=== PATIENT | male | born 1965 | race Caucasian/White ===

== ENCOUNTER 2020-12-29 09:48 | Day surgery (SDC) | payer OTHER ==
[~2020-12-29] VITALS: Ht 183 cm; Wt 100.0 kg
[~2020-12-29 09:48] MED LIST: CENTRUM SILVER1 EAC5 PO; DICLOFENAC SODI75 MG PO; PRILOSEC20 MG PO; VIT D PO
--- NOTE | 2020-12-29 15:09 | NUR ---
PT HAD A LDATHR THIS DATE. PT. WILL D/C HOME WITH SPOUSE. PT. HAS A ROLLING WALKER. PT REQUESTED [facility]. FIRST APPT. IS 12/31/20 @ 3:34 P.M. PT SIGNED CHOICE FORM.
--- NOTE | 2020-12-29 22:28 | NUR ---
PATIENT CALLED NURSE TO COME IN ROOM FOR CHEST FLUTTERS. HEART RATE WAS 130 ON ASSESSMENT. PATIENT DENIES CHEST PAIN, JUST FLUTTERING. EKG SHOWS SINUS TACH. KATIA SHEPPARD AT BEDSIDE TO SEE EKG. PATIENT PLACED ON TELE. LABS ORDERED. MONITORING. NO NEW ORDERS AT THIS TIME.
[2020-12-29 23:27] LABS: HCT 43.5 % (42.0-52.0); HGB 14.8 g/dl (13.2-18.0); MCH 30.6 pg (25.0-31.0); MCV 89.9 fL (78.0-100.0); MPV 11.5 fL (6.0-9.5); RBC 4.84 M/uL (4.70-6.00); RDW 13.5 % (11.5-14.0); WBC 22.8 K/uL (4.0-10.5)
[2020-12-29 23:45] LABS: ALBUMIN 4.2 g/dL (3.4-5.0); BILIRUBIN - TOTAL 0.7 mg/dL (0.2-1.0); BUN/CREAT RATIO (CALC) 30.1 RATIO; CREATININE 0.73 mg/dL (0.67-1.17); GLOBULIN (CALCULATION) 3.5 g/dL; TOTAL PROTEIN 7.7 g/dL (6.4-8.2)
[2020-12-30 07:03] LABS: BASOPHIL 0.2 % (0-2); EOSINOPHIL 0.2 % (0-5); HCT 35.2 % (42.0-52.0); HGB 12.1 g/dl (13.2-18.0); LYMPHOCYTE 13.8 % (15-48); MCH 30.6 pg (25.0-31.0); MCHC 34.4 g/dL (32.0-36.0); MCV 89.1 fL (78.0-100.0); MONOCYTE 10.7 % (0-12); MPV 11.2 fL (6.0-9.5); NEUTROPHIL 74.5 % (41-80); NRBC 0; PLT 276 K/uL (150-400); RBC 3.95 M/uL (4.70-6.00); RDW 13.6 % (11.5-14.0); WBC 16.6 K/uL (4.0-10.5)
[2020-12-30 07:26] LABS: BUN/CREAT RATIO (CALC) 22.2 RATIO; CREATININE 0.81 mg/dL (0.67-1.17); POTASSIUM 4.1 mmol/L (3.5-5.1)
[2020-12-30] MEDS ORDERED: FEOSOL325 MG PO (09:30)
[2020-12-30] MEDS ORDERED: OXYCODONE-ACET1 EAC1 PO (09:30)
[2020-12-30] MEDS ORDERED: XARELTO10 MG PO (09:30)
[2020-12-30] MEDS ORDERED: TOPROL XL 25MG25 MG PO (10:07)
[2020-12-30] MEDS ORDERED: ROBAXIN500 MG PO (10:24)
--- NOTE | 2020-12-30 14:00 | NUR ---
1400 COMPLAINTS OF INCREASED NAUSEA AND DIZZINESS, VOMITING, FEELS THAT HE CAN'T GO HOME FEELING THIS WAY. DANYELL HARIKA WAS NOTIFED AND NEW ORDERS TO REPLACE THE IV SITE AND RESTART THE FLUIDS AND GIVE AN EXTRA DOSE OF ZOFRAN. WILL MONITOR FOR CDISCHARGE HAS BEEN CANCELLED.
--- NOTE | 2020-12-30 18:04 | NUR ---
1751 INCREASED HEARTRATE IN THE 160 WHILE UP WALKING TO THE BATHROOM, STILL INCREASED TO THE 155 WHILE SITTING UP IN THE CHAIR, COLOR PALE NO COMPLIANTS OF ANY CHEST PAINS JUST STILL THE NAUSEA. DR. CHIU WAS NOTIFED AND NEW ORDERS FOR A STAT EKG, LAB WORK, V/S ARE 123/90, HR 136, RES 22, O2 SAT 99% ON ROOM AIR. NEW ORDERS FOR COMPAZINE IV TO BE GIVEN, WILL NOTIFY DR. CHIU OF THE RESULTS OF THE LAB WORK AND THE EKG. EKG ONLY SHOWED SINUS TACK HR 133, WILL MONITOR FOR CHANGES.
[2020-12-30 18:25] LABS: BASOPHIL 0.2 % (0-2); EOSINOPHIL 0 % (0-5); HGB 10.5 g/dl (13.2-18.0); LYMPHOCYTE 10.6 % (15-48); MCH 30.9 pg (25.0-31.0); MCV 88.2 fL (78.0-100.0); MONOCYTE 9.3 % (0-12); MPV 11.2 fL (6.0-9.5); NEUTROPHIL 79.3 % (41-80); NRBC 0; PLT 307 K/uL (150-400); RDW 13.6 % (11.5-14.0)
[2020-12-30 18:26] LABS: WBC 18.7 K/uL (4.0-10.5)
[2020-12-30 18:46] LABS: BUN/CREAT RATIO (CALC) 21.4 RATIO; CREATININE 1.17 mg/dL (0.67-1.17); MAGNESIUM 1.8 mg/dL (1.8-2.4)
--- NOTE | 2020-12-30 18:55 | NUR ---
REPORTS THE LAB RESULTS TO SILVER TAVERAS APRN, NO NEW ORDERS AT THIS TIME.
[2020-12-31 06:30] LABS: BASOPHIL 0.2 % (0-2); EOSINOPHIL 0.3 % (0-5); HCT 24.8 % (42.0-52.0); HGB 8.5 g/dl (13.2-18.0); LYMPHOCYTE 10.3 % (15-48); MCH 30.6 pg (25.0-31.0); MCHC 34.3 g/dL (32.0-36.0); MCV 89.2 fL (78.0-100.0); MONOCYTE 11.7 % (0-12); MPV 11.7 fL (6.0-9.5); NEUTROPHIL 76.9 % (41-80); NRBC 0; PLT 208 K/uL (150-400); RBC 2.78 M/uL (4.70-6.00); RDW 13.7 % (11.5-14.0); WBC 13.7 K/uL (4.0-10.5)
[2020-12-31 06:55] LABS: BUN/CREAT RATIO (CALC) 23.7 RATIO; CREATININE 1.14 mg/dL (0.67-1.17)
[2020-12-31 08:11] LABS: HBSAG SCREEN Negative (Negative); HEP B CORE AB, TOT Negative (Negative); HEP C VIRUS AB 0.1 (0.0-0.9)
[2020-12-31] MEDS ORDERED: ZOFRAN4 M1 PO (08:31)
--- NOTE | 2020-12-31 09:54 | NUR ---
PT IS TO D/C HOME THIS DATE AFTER A DELAY. HE HAS AN APPT AT [facility] AT 9:00 A.M. ON 01/02/21.
[2020-12-31] MEDS ORDERED: NORCO 5-325 TA1 EACH PO (10:20)
--- NOTE | 2020-12-31 10:26 | NUR ---
PER DANYELL RING THE [employer] IS $323.67. WE SPOKE WITH PT AND SHE WAS IN AGREEMENT WITH [facility].
== END 2020-12-31 10:28 | disposition home or self-care (01) ==
LOC: FAS 09:48 → FOR 12:30 → FMS 14:32 → FAS 12-31 10:28
PROVIDERS: Internal Medicine; Legal Medicine; Nurse Practitioner; Nurse Practitioner Adult Health
DX: M16.12 Unilateral primary osteoarthritis, left hip (principal); M87.9 Osteonecrosis, unspecified; M84.459A Pathological fracture, hip, unspecified, initial encounter for fracture; K21.9 Gastro-esophageal reflux disease without esophagitis; R00.0 Tachycardia, unspecified; Z91.041 Radiographic dye allergy status; Z88.1 Allergy status to other antibiotic agents
CPT/HCPCS: 36415; 73501; 76000; 80048; 80053; 83735; 84484; 85025; 86704; 86706; 86708; 86803; 86850; 86900; 86901; 87340; 93005; 94010; 94762; 97110; 97162; 97166; 97530-GP; 97535; C1713; C1776; J0171; J0697; J1100; J1170; J1885; J2250; J2270; J2405; J2704; J2710; J2795; J3010; J7120